=== PATIENT | female | born 1980 | race Caucasian/White ===

== ENCOUNTER 2024-06-05 09:10 | Day surgery (SDC) | payer BC ==
[2024-05-27 11:45] LABS: BASOPHILS % (AUTO) 0.4 % (0-1); EOSINOPHILS % (AUTO) 0.5 % (0-6); LYMPHOCYTES # (AUTO) 1.7 X10'3 (1.1-4.8); MEAN CORPUSCULAR HEMOGLOBIN 29.3 PG (27.0-31.0); MEAN CORPUSCULAR HGB CONC 33.1 g/dL (33.0-36.5); MEAN CORPUSCULAR VOLUME 88.4 FL (78-98); MEAN PLATELET VOLUME 7.1 FL (7.4-10.4); MONOCYTES # (AUTO) 0.3 X10'3 (0-0.9); MONOCYTES % (AUTO) 4.8 % (2-12); NEUTROPHILS # (AUTO) 4.2 X10'3 (1.8-7.7); NEUTROPHILS % (AUTO) 67.3 % (42-75); PRE OP HEMATOCRIT 42.3 % (35.0-45.0); PRE OP PLATELET COUNT 350 X10'3 (140-440); PRE OP WHITE BLOOD COUNT 6.3 10'3 (4.8-10.8); RED BLOOD COUNT 4.78 X10'6 (4.20-5.60); RED CELL DISTRIBUTION WIDTH 13.7 % (11.5-14.5)
[2024-05-27 11:56] LABS: ALBUMIN/GLOBULIN RATIO 1.2 (1.1-1.5); ALKALINE PHOSPHATASE 42 IU/L (46-116); BLOOD UREA NITROGEN 12 MG/DL (7-18); BUN/CREATININE RATIO 14.1 (10.0-20.0); CALCIUM 9.3 MG/DL (8.5-10.1); CHLORIDE 105 MMOL/L (99-107); CREATININE 0.85 MG/DL (0.40-0.90); PRE OP ALT 28 U/L (30-65); PRE OP ANION GAP 10 (8-16); PRE OP AST 13 U/L (10-37); PRE OP BILIRUB, TOTAL 0.4 MG/DL (0.0-1.0); PRE OP GLUCOSE 92 MG/DL (70-104); PRE OP POTASSIUM 4.1 MMOL/L (3.4-5.1); PRE OP SODIUM 141 MMOL/L (135-145); TOTAL CARBON DIOXIDE 26.5 MMOL/L (24-32); TOTAL PROTEIN 7.4 G/DL (6.4-8.2); eGFR 74 ML/MIN
[2024-06-05] VITALS (9 sets, daily range): BP systolic 110–135; BP diastolic 67–93; PULSE 61–75; RESP 10–16; TEMP 98; O2SAT 98–100
[~2024-06-05] VITALS: Ht 157.5 cm; Wt 73.5 kg
[~2024-06-05 09:10] MED LIST: NO HOME MEDS
[2024-06-05] MEDS: cefazolin 2gm/D5W 100mL 100 ML IV ONE (09:42)
[2024-06-05] MEDS: famotidine 20mg tablet PO ONE (09:43)
[2024-06-05] MEDS: ringers solution, lacted 1,000 ML IV SCH (09:43)
[2024-06-05] MEDS ORDERED: fentaNYL/PF 50MCG/1 ML 2ML syringe ONE (10:28)
[2024-06-05] MEDS ORDERED: sevoflurane 250ml liquid IH ONE (10:30)
[2024-06-05] MEDS: LIDOcaine 1% 30ml preserv. free vial ONE (11:02)
[2024-06-05] MEDS: BUPIVAcaine 2.5mg/ml inj 50ml vial (contains preservative) ONE (11:02)
[2024-06-05] MEDS ORDERED: morphine 4 MG/ML inj SYRINge IV PRN (11:35)
[2024-06-05] MEDS ORDERED: enalaprilat dihydrate 2.5mg/2ml vial IV PRN (11:35)
[2024-06-05] MEDS ORDERED: labetalol 20mg/4ml (5mg/ml) syringe IV PRN (11:35)
[2024-06-05] MEDS ORDERED: ondansetron/PF 4mg/2ml inj IV PRN (11:35)
[2024-06-05] MEDS ORDERED: ringers solution, lacted 1,000 ML IV SCH (11:35)
[2024-06-05] MEDS ORDERED: proCHLORperazine 10 MG/2 ml inj IV PRN (11:35)
[2024-06-05] MEDS ORDERED: morphine 2 MG/ML inj. syringe IV PRN (11:35)
[2024-06-05] MEDS ORDERED: meperidine/PF 25mg/ml syringe IV PRN ×3 (11:35)
[2024-06-05] MEDS: acetaminophen 1,000mg/100ml IV 100 ML IV STA (12:17)
== END 2024-06-05 13:00 | disposition home or self-care (01) ==
LOC: PAS 09:10
PROVIDERS: ATTEND Surgery
DX: N60.81 Other benign mammary dysplasias of right breast (principal); Z98.51 Tubal ligation status; Z98.891 History of uterine scar from previous surgery; Z88.8 Allergy status to other drugs, medicaments and biological substances
CPT/HCPCS: 19120; 36415; 80053; 82948; 85025; J0131; J0690; J2704; J2710; J3010; J3490; J7030; J7120; Z7506; Z7512; A4215; A4618; A6449; A7000

== ENCOUNTER 2024-06-29 14:25 | Outpatient (CLI) | payer BC | END 2024-06-29 23:59 | disposition home or self-care (01) | LOC: LAB 14:25 | PROVIDERS: ATTEND Surgery | DX: E11.00 Type 2 diabetes mellitus with hyperosmolarity without nonketotic hyperglycemic-hyperosmolar coma (NKHHC) (principal) | CPT/HCPCS: 87070 ==

== ENCOUNTER 2024-09-25 08:59 | Day surgery (SDC) | payer BC ==
[2024-09-23 12:07] LABS: BASOPHILS % (AUTO) 0.5 % (0-1); EOSINOPHILS % (AUTO) 0.5 % (0-6); LYMPHOCYTES # (AUTO) 2.1 X10'3 (1.1-4.8); LYMPHOCYTES % (AUTO) 29.1 % (21-51); MEAN CORPUSCULAR HEMOGLOBIN 29.6 PG (27.0-31.0); MEAN CORPUSCULAR HGB CONC 33.4 g/dL (33.0-36.5); MEAN CORPUSCULAR VOLUME 88.6 FL (78-98); MEAN PLATELET VOLUME 6.7 FL (7.4-10.4); MONOCYTES # (AUTO) 0.4 X10'3 (0-0.9); MONOCYTES % (AUTO) 5.1 % (2-12); NEUTROPHILS # (AUTO) 4.7 X10'3 (1.8-7.7); NEUTROPHILS % (AUTO) 64.8 % (42-75); PRE OP HEMATOCRIT 39.6 % (35.0-45.0); PRE OP HEMOGLOBIN 13.2 g/dL (12.0-16.0); PRE OP PLATELET COUNT 334 X10'3 (140-440); PRE OP WHITE BLOOD COUNT 7.2 10'3 (4.8-10.8); RED BLOOD COUNT 4.46 X10'6 (4.20-5.60); RED CELL DISTRIBUTION WIDTH 13.9 % (11.5-14.5)
[2024-09-23 12:23] LABS: ALBUMIN/GLOBULIN RATIO 1.3 (1.1-1.5); ALKALINE PHOSPHATASE 43 IU/L (46-116); BLOOD UREA NITROGEN 10 MG/DL (7-18); BUN/CREATININE RATIO 12.3 (10.0-20.0); CALCIUM 8.7 MG/DL (8.5-10.1); CHLORIDE 107 MMOL/L (99-107); CREATININE 0.81 MG/DL (0.40-0.90); PRE OP ALT 23 U/L (30-65); PRE OP ANION GAP 6 (8-16); PRE OP AST 19 U/L (10-37); PRE OP BILIRUB, TOTAL 0.3 MG/DL (0.0-1.0); PRE OP GLUCOSE 88 MG/DL (70-104); PRE OP SODIUM 139 MMOL/L (135-145); TOTAL CARBON DIOXIDE 26.5 MMOL/L (24-32); TOTAL PROTEIN 7.1 G/DL (6.4-8.2); eGFR 78 ML/MIN
[2024-09-25] VITALS (11 sets, daily range): BP systolic 112–139; BP diastolic 79–99; PULSE 0–76; RESP 13–16; TEMP 98.1; O2SAT 96–100
[~2024-09-25] VITALS: Ht 157.5 cm; Wt 75.7 kg
[2024-09-25] MEDS: ceFAZolin 2gm in dextrose, iso 50 ML IV ONE (05:30)
[~2024-09-25 08:59] MED LIST changes: +BUPIVAcaine 2.5mg/ml inj 50ml vial (contains preservative) ONE; +BUPIVAcaine HCl 0.25%/EPInephrine 1:200,000 inj. 10 ML VIAL ONE; +LIDOcaine 1% (10mg/ml)w/preservative inj. 20ml MDV ONE
[2024-09-25] MEDS: famotidine 20mg tablet PO ONE (10:06)
[2024-09-25] MEDS: ringers solution, lacted 1,000 ML IV SCH (10:07)
[2024-09-25] MEDS ORDERED: fentaNYL/PF 50MCG/1 ML 2ML syringe ONE (10:55)
[2024-09-25] MEDS ORDERED: dexamethasone sod phosphate 4mg/ml inj. ONE (10:55)
[2024-09-25] MEDS ORDERED: LIDOcaine 1%/PF 5ML 10 MG/ML VIAL ONE (10:56)
[2024-09-25] MEDS ORDERED: propofol inj 20 ML IV ONE (10:56)
[2024-09-25] MEDS ORDERED: ondansetron/PF 4mg/2ml inj ONE (10:56)
[2024-09-25] MEDS: BUPIVAcaine/PF 2.5 mg/ml (0.25%) 30ml vial IJ ONE (11:30)
[2024-09-25] MEDS ORDERED: sevoflurane 250ml liquid IH ONE (11:58)
[2024-09-25] MEDS ORDERED: morphine 4 MG/ML inj SYRINge IV PRN (12:00)
[2024-09-25] MEDS ORDERED: proCHLORperazine 10 MG/2 ml inj IV PRN (12:00)
[2024-09-25] MEDS ORDERED: ondansetron/PF 4mg/2ml inj IV PRN (12:00)
[2024-09-25] MEDS ORDERED: meperidine/PF 25mg/ml syringe IV PRN ×2 (12:00)
[2024-09-25] MEDS ORDERED: fentaNYL/PF 50MCG/1 ML 2ML syringe IV PRN ×2 (12:00)
[2024-09-25] MEDS: morphine 2 MG/ML inj. syringe IV PRN (12:15)
== END 2024-09-25 13:00 | disposition home or self-care (01) ==
LOC: PRE-OP 08:59
PROVIDERS: ATTEND Surgery
DX: N63.10 Unspecified lump in the right breast, unspecified quadrant (principal); L72.0 Epidermal cyst; N64.89 Other specified disorders of breast; R92.8 Other abnormal and inconclusive findings on diagnostic imaging of breast; N60.11 Diffuse cystic mastopathy of right breast; N60.22 Fibroadenosis of left breast; Z79.899 Other long term (current) drug therapy; Z98.51 Tubal ligation status; Z98.891 History of uterine scar from previous surgery; Z98.890 Other specified postprocedural states; Z88.8 Allergy status to other drugs, medicaments and biological substances
CPT/HCPCS: 11404; 36415; 80053; 82948; 85025; J0690; J1100; J2270; J2405; J2704; J3010; J3490; J7030; J7120; Z7506; Z7512; A4215; A4618; A6449; A7000